=== PATIENT | female | born 1945 | race Caucasian/White ===

== ENCOUNTER → 2016-07-01 | Outpatient (CLI) | payer MEDICARE, BC | LOC: SUN.DIA 08:55 | DX: E11.65 Type 2 diabetes mellitus with hyperglycemia (principal); E66.9 Obesity, unspecified; Z68.43 Body mass index [BMI] 50.0-59.9, adult; Z71.3 Dietary counseling and surveillance; E78.5 Hyperlipidemia, unspecified; I10 Essential (primary) hypertension | CPT/HCPCS: G0108 ==

== ENCOUNTER → 2017-02-03 | Outpatient (CLI) | payer MEDICARE, BC | LOC: SUN.DIA 09:11 | DX: E11.9 Type 2 diabetes mellitus without complications (principal); E78.5 Hyperlipidemia, unspecified; I10 Essential (primary) hypertension; E66.9 Obesity, unspecified; Z68.43 Body mass index [BMI] 50.0-59.9, adult; Z71.3 Dietary counseling and surveillance | CPT/HCPCS: G0108 ==

== ENCOUNTER → 2017-08-04 | Outpatient (CLI) | payer MEDICARE, BC | LOC: SUN.DIA 01-27 09:07 | DX: E11.9 Type 2 diabetes mellitus without complications (principal); E78.5 Hyperlipidemia, unspecified; I10 Essential (primary) hypertension; E66.9 Obesity, unspecified; Z68.43 Body mass index [BMI] 50.0-59.9, adult; Z71.3 Dietary counseling and surveillance | CPT/HCPCS: G0108 ==

== ENCOUNTER → 2017-08-27 | Outpatient (CLI) | payer MEDICARE, BC | LOC: COL.VAS 12:30 | DX: I82.4Z2 Acute embolism and thrombosis of unspecified deep veins of left distal lower extremity (principal); Z86.79 Personal history of other diseases of the circulatory system; Z98.890 Other specified postprocedural states ==

== ENCOUNTER → 2018-03-23 | Outpatient (CLI) | payer MEDICARE, BC | LOC: SUN.DIA 03-02 10:33 | DX: E11.9 Type 2 diabetes mellitus without complications (principal); E78.5 Hyperlipidemia, unspecified; I10 Essential (primary) hypertension ==

== ENCOUNTER 2018-06-09 20:21 | Inpatient (IN) | payer MEDICARE, BC ==
[2018-06-09] VITALS (8 sets, daily range): O2SAT 90–96
[~2018-06-09] VITALS: Ht 157.5 cm; Wt 142.8 kg
[2018-06-09 20:44] LABS: BASO # 0.1 (0.0-0.2); BASO % 0.7 % (0.0-2.0); EOS # 0.2 (0.0-0.7); GRAN # 6.9 (1.4-6.5); GRAN % 64.4 % (42.2-75.2); HEMATOCRIT 45.8 % (37.0-47.0); HEMOGLOBIN 14.4 g/dl (12.5-16.0); LYMPH # 2.6 (1.2-3.4); LYMPH % 24.5 % (20.0-51.0); MEAN CELL VOLUME 94 fl (80.0-100.0); MEAN CORPUSCULAR HEMOGLOBIN 30 pg (27.0-31.0); MEAN CORPUSCULAR HGB CONC 31 g/dl (33.0-37.0); MEAN PLATELET VOLUME 9.7 fl (7.4-10.4); MONO # 0.9 (0.1-0.6); MONO % 7.9 % (1.7-9.3); PLATELET COUNT 284 K/mm3 (130-400); RED BLOOD COUNT 4.85 M/mm3 (4.10-5.30)
[2018-06-09 20:54] LABS: ALBUMIN 4.4 gm/dL (3.5-5.0); BILIRUBIN,TOTAL 0.5 mg/dL (0.0-1.0); C-REACTIVE PROTEIN 1.7 mg/dL (0.0-0.9); CALCIUM 9.8 mg/dL (8.4-10.2); CREATININE, serum 0.69 (0.52-1.25); POTASSIUM 3.7 mmol/L (3.4-5.0); TOTAL PROTEIN 8.5 gm/dL (6.4-8.2)
[2018-06-09 21:13] LABS: TROPONIN-I 0.197 ng/mL (0.000-0.035)
[2018-06-09 21:31] LABS: INR 1.1 (0.8-3.0); PROTHROMBIN TIME 12.2 SECONDS (9.7-12.8)
[2018-06-09 21:34] LABS: PARTIAL THROMBOPLASTIN TIME 29.9 SECONDS (26.0-37.0)
[2018-06-09] MEDS ORDERED: OMEGA-3 1000 MG1 CAP PO (23:09)
[2018-06-09] MEDS ORDERED: GLUCOPHAGE500 MG/TAB PO (23:10)
[2018-06-09] MEDS ORDERED: ARIMIDEX1 MG PO ×2 (23:10)
[2018-06-09] MEDS ORDERED: THE MEDICINE S200 M2 PO (23:11)
[2018-06-09] MEDS ORDERED: COZAAR 25MG25 MG/TAB PO (23:11)
[2018-06-09] MEDS ORDERED: ASPIRIN 81M81 MG/TA2 PO (23:11)
[2018-06-09] MEDS ORDERED: CRESTOR 10MG10 MG PO (23:11)
--- NOTE | 2018-06-09 23:29 | NUR ---
Report received from EHTAN Melton RN at this time.
[2018-06-10] VITALS (440 sets, daily range): BP systolic 137–177; BP diastolic 80–125; PULSE 86–99; TEMP 97.8–98.6; O2SAT 88–100
[2018-06-10] MEDS ORDERED: VENTOLIN0.09 MG IH (00:10)
[2018-06-10 05:00] LABS: BASO # 0.1 (0.0-0.2); BASO % 0.5 % (0.0-2.0); EOS # 0.1 (0.0-0.7); EOS % 0.9 % (0-4.0); GRAN % 73.7 % (42.2-75.2); HEMATOCRIT 41.8 % (37.0-47.0); HEMOGLOBIN 13.4 g/dl (12.5-16.0); MEAN CELL VOLUME 93 fl (80.0-100.0); MEAN CORPUSCULAR HEMOGLOBIN 30 pg (27.0-31.0); MEAN CORPUSCULAR HGB CONC 32 g/dl (33.0-37.0); MEAN PLATELET VOLUME 9.5 fl (7.4-10.4); MONO # 0.7 (0.1-0.6); MONO % 6.3 % (1.7-9.3); PLATELET COUNT 275 K/mm3 (130-400); RED BLOOD COUNT 4.51 M/mm3 (4.10-5.30); REDCELL DISTRIBUTION WIDTH-CV 14.1 % (11.5-14.5)
--- NOTE | 2018-06-10 05:30 | NUR ---
Started cardene back at 2.5 mg/hr per CHAYO Garces.
[2018-06-10 06:35] LABS: CALCIUM 9.6 mg/dL (8.4-10.2); CREATININE, serum 0.58 (0.52-1.25); POTASSIUM 3.9 mmol/L (3.4-5.0)
--- NOTE | 2018-06-10 07:25 | NUR ---
Report received from Nathaniel REZA and care resumed.
--- NOTE | 2018-06-10 10:40 | NUR ---
Dr Castillo in to see pt. Will plan on transitioning pt off cardene to oral bp meds and start on skilled nursing coumadin due to history of previous clots.
--- NOTE | 2018-06-10 10:46 | NUR ---
SIMONE bess met with patient to discuss discharge plan. Patient lives in [place] with her (Albert). Patient's PCP id Dr. Rodriguez and she uses the [facility] in [place]. Patient uses a cane regularly and reports independence with ADLs. Patient does not have a completed DPOA-HC but was interested in obtaining the form to look over and complete later. SIMONE bess presented and explained the form. Patient plans to return home with her upon discharge. No identified needs at this time.
--- NOTE | 2018-06-10 13:10 | NUR ---
Dr Haddad in to see pt at this time.
--- NOTE | 2018-06-10 13:48 | NUR ---
Report given to Marcelina REZA and care transfered.
--- NOTE | 2018-06-10 14:26 | NUR ---
Report called to Laurita REZA on medical floor. Pt to transfer to room 311.
--- NOTE | 2018-06-10 14:40 | NUR ---
Received pt from ICU. Pt denies shortness of breath or chest pain. Breathing is even and unlabored. Breath sounds clear. Strong equal press maintainer. Radial pulse strong. Bowel sounds active in all quadrants. Slight edema to bilateral extremities, no pitting. [place] to room. PT denies any needs, call light in reach.
--- NOTE | 2018-06-10 18:28 | NUR ---
Pt sitting up in bed, denies shortness of breath or chest pain. Pt has been able to be independent in room without SOB. Call light in reach.
--- NOTE | 2018-06-10 18:56 | NUR ---
Hand off report given to Berkley REZA. Pt sitting up in bed with a nose bleed. Kleenex and pressure applied.
--- NOTE | 2018-06-10 19:01 | NUR ---
Report received from JUAQUIN Shay.
--- NOTE | 2018-06-10 20:38 | NUR ---
Resting in bed. Assessment complete. Lungs clear. No shortness of breath or labored breathing present. Heart sounds normal. Bowels active x4. Pulses present throughout. Bilateral lower leg edema +1. Denies pain at this time. INT to right forearm and right AC flushed without complications. Denies needs. at bedside. Call light in reach.
--- NOTE | 2018-06-10 23:49 | NUR ---
Resting in bed. Denies needs. Call light in reach.
[2018-06-11 00:05] VITALS: BP 134/74; PULSE 84; TEMP 97.8
[2018-06-11 03:59] VITALS: BP 158/98; PULSE 88; TEMP 98
--- NOTE | 2018-06-11 04:04 | NUR ---
Sitting at bedside. Denies needs. Denies pain. Call light in reach.
--- NOTE | 2018-06-11 05:45 | NUR ---
Patient oxygen increased to 2 liters per respiratory therapy for saturation of 88% on 1 liter. Otherwise uneventful night. Watching television this AM. Call light in reach.
[2018-06-11 06:21] LABS: BASO # 0.1 (0.0-0.2); BASO % 0.9 % (0.0-2.0); EOS # 0.2 (0.0-0.7); EOS % 2.5 % (0-4.0); GRAN # 4.9 (1.4-6.5); HEMATOCRIT 38.2 % (37.0-47.0); HEMOGLOBIN 12.3 g/dl (12.5-16.0); LYMPH % 24.9 % (20.0-51.0); MEAN CELL VOLUME 92 fl (80.0-100.0); MEAN CORPUSCULAR HEMOGLOBIN 30 pg (27.0-31.0); MEAN CORPUSCULAR HGB CONC 32 g/dl (33.0-37.0); MONO # 0.8 (0.1-0.6); MONO % 10.3 % (1.7-9.3); PLATELET COUNT 223 K/mm3 (130-400); RED BLOOD COUNT 4.14 M/mm3 (4.10-5.30); REDCELL DISTRIBUTION WIDTH-CV 14.1 % (11.5-14.5)
[2018-06-11 06:25] LABS: INR 1.2 (0.8-3.0); PROTHROMBIN TIME 13.7 SECONDS (9.7-12.8)
[2018-06-11 06:32] LABS: CALCIUM 9.2 mg/dL (8.4-10.2); CREATININE, serum 0.6 (0.52-1.25); POTASSIUM 3.7 mmol/L (3.4-5.0)
[2018-06-11 06:47] LABS: TROPONIN-I 0.181 ng/mL (0.000-0.035)
--- NOTE | 2018-06-11 07:02 | NUR ---
Report given to JUAQUIN Andino
--- NOTE | 2018-06-11 07:07 | NUR ---
Patient has nose bleed this AM. Reports x3 throughout night, did not alert staff. On humadified oxygen. JUAQUIN Andino aware of nose bleeds.
[2018-06-11 08:16] VITALS: BP 167/91; PULSE 85; TEMP 98.6
--- NOTE | 2018-06-11 09:09 | NUR ---
patient was admitted with a diagnosis of bilateral PE. patient was awake in bed. A&OX4 and stated pain of 1 on a scale of 0-10. patient stated it was mild joint pain from laying in bed. patient has bilater lower extremity +2 pitting edema. after assessments patient stated no other need. call light within reach and bed in lowest position.
--- NOTE | 2018-06-11 10:07 | NUR ---
patient has had nose bleeds throughout the night. stated very little blood and easy to stop. will continue to monitor
--- NOTE | 2018-06-11 10:18 | NUR ---
Initial visit; Patient thanked Heavy Duty Custodian for offering God's blessings.
[2018-06-11 11:12] VITALS: BP 165/90; PULSE 93; TEMP 98.5
--- NOTE | 2018-06-11 13:48 | NUR ---
Primary nurse was assisted with [phone] patient care by [employer] student Phil Bravo and [employer] instructor Knea Álvarez RN-BC.
[2018-06-11 16:19] VITALS: BP 131/82; PULSE 89; TEMP 98.4
--- NOTE | 2018-06-11 18:32 | NUR ---
Patient is sitting up on window seat visiting with . Has been independently ambulating in room without difficulty. Call light is within reach.
--- NOTE | 2018-06-11 19:07 | NUR ---
Report received from JUAQUIN Andino
[2018-06-11 19:16] VITALS: BP 120/57; PULSE 90; TEMP 98.1
--- NOTE | 2018-06-11 20:30 | NUR ---
Resting in bed. Assessment complete. Lungs clear. Heart sounds normal. Bowels active X4. Pulses present throughout. Bilateral lower leg edema +1. Denies pain. INT in right forarm removed. INT right Ac flushes without complications. Denies other needs at this time. Call light in reach.
--- NOTE | 2018-06-11 21:02 | NUR ---
Sitting at bedside with sister in room. Assessment complete. Lungs clear. Heart sounds normal. Bowels active x4. Pulses present throughout. No edema noted. Left AC INT flushed without complications. Denies needs at this time. Denies pain. Call light in reach. Will monitor.
--- NOTE | 2018-06-12 00:15 | NUR ---
Resting in bed. Denies needs. Call light in reach.
[2018-06-12 01:05] VITALS: BP 155/88; PULSE 87; TEMP 98.1
--- NOTE | 2018-06-12 02:13 | NUR ---
Resting in bed asleep. Call light in reach.
[2018-06-12 03:30] VITALS: BP 132/55; PULSE 75; TEMP 98.1
--- NOTE | 2018-06-12 05:49 | NUR ---
Patient had uneventful night. Resting in bed this AM. Call light in reach.
[2018-06-12 07:15] LABS: INR 1.6 (0.8-3.0); PROTHROMBIN TIME 18.2 SECONDS (9.7-12.8)
[2018-06-12 07:23] VITALS: BP 149/72; PULSE 76; TEMP 97.8
--- NOTE | 2018-06-12 07:25 | NUR ---
Report given to JUAQUIN Andino
--- NOTE | 2018-06-12 07:53 | NUR ---
patiemts primary diagnosis is bilateral PE patient awake in bed this morning. had IV removed the night before, one IV remains with no signs of infuiltration or phlebitis. complained of knee pain. due to pulsoxemetry therapy planned this morning i gave her 5/325 norco for knee pain. having no issues with ambulation or voiding. blood glucose level of 110 this morning. according to sliding scale no insulin is needed. patient has ordered breakfast. call light is within reach and the bed is in the lowest position.
[2018-06-12] MEDS ORDERED: ELIQUIS 5MG PO (09:20)
[2018-06-12] MEDS ORDERED: NORVASC 5MG5 MG/TAB PO (09:21)
[2018-06-12 09:36] LABS: ANTI-THROMBIN III 90 % (72-128)
[2018-06-12 09:39] LABS: PROTEIN C ACTIVITY 131 % (70-150)
--- NOTE | 2018-06-12 10:20 | NUR ---
The patient qualified for home oxygen. SIMONE met with the patient to discuss DME options and presented and explained the patient choice form for DME. The patient chose [facility]. SIMONE contacted and faxed the patient's oxygen order to Nilda at [facility]. SIMONE to continue to follow.
--- NOTE | 2018-06-12 10:53 | NUR ---
Coni, at [facility], reports that the patient will most likely have to private pay for her oxgen, due to her having an acute diagnoses. SIMONE informed the patient and she is agreeable to pursue with getting the oxygen. SIMONE informed Coni at [facility]. [facility] plans to deliver the patient's oxgyen to her room. SIMONE also presented and explained the IM form to the patient. The patient verbalized understanding, signed, and she was provided a copy. No additional needs at this time.
[2018-06-12 13:03] VITALS: BP 153/74; PULSE 71; TEMP 98
[2018-06-12 13:05] LABS: FACTOR II ACTIVITY 89 % (75 - 145)
--- NOTE | 2018-06-12 13:07 | NUR ---
insulin not given. patient being discharged.
--- NOTE | 2018-06-12 13:24 | NUR ---
Patient is discharging home with . Home oxygen is to be delivered to the home and oxygen is delivered to room prior to discharge.
--- NOTE | 2018-06-12 13:42 | NUR ---
Nursing staff transfered patient by wheelchair outside. Personal belongings and discharge paperwork with patient. No further needs expressed from patient.
--- NOTE | 2018-06-12 13:42 | NUR ---
Primary nurse was assisted with [phone] patient care by [employer] [facility] Phil Bravo and [employer] instructor Kena Álvarez RN-BC.
[2018-06-15 12:05] LABS: LUPUS ANTICOAGULANT INR 1.3 (()); LUPUS ANTICOAGULANT PT 13.8 sec (())
== END 2018-06-12 13:42 | disposition home or self-care (01) | DRG 175 ==
LOC: COL.ER 20:21 → ICU 22:54 → IMCU 06-10 14:12 → MEDICAL 06-10 15:29
PROVIDERS: Emergency Medicine; Nurse Practitioner Family; Physician Assistant; ADMIT Internal Medicine
DX: I26.99 Other pulmonary embolism without acute cor pulmonale (principal); I21.4 Non-ST elevation (NSTEMI) myocardial infarction; I82.432 Acute embolism and thrombosis of left popliteal vein; Z68.43 Body mass index [BMI] 50.0-59.9, adult; Z66 Do not resuscitate; I16.0 Hypertensive urgency; E78.5 Hyperlipidemia, unspecified; E11.9 Type 2 diabetes mellitus without complications; Z85.3 Personal history of malignant neoplasm of breast; E66.01 Morbid (severe) obesity due to excess calories
CPT/HCPCS: 99223-AI; 99233-AI; 99239; J1650; J7030; J7050; Q9967

== ENCOUNTER → 2018-09-02 | Outpatient (CLI) | payer MEDICARE, BC ==
[~2018-09-02] MED LIST: ARIMIDEX1 MG PO; ASPIRIN 81M81 MG/TA2 PO; COZAAR 25MG25 MG/TAB PO; CRESTOR 10MG10 MG PO; ELIQUIS 5MG PO; GLUCOPHAGE500 MG/TAB PO; NORVASC 5MG5 MG/TAB PO; OMEGA-3 1000 MG1 CAP PO; THE MEDICINE S200 M2 PO; VENTOLIN0.09 MG IH
--- NOTE | 2018-09-02 11:30 | NUR ---
ABG COMPLETED AT THIS TIME. PER PATIENT REQUEST SPO2 CHECKED VIA [employer]. SPO2 WAS 94%.
[2018-09-02 11:34] LABS: ARTERIAL BLD GAS O2 SATURATION 94.4 % (92-100); ARTERIAL BLD GAS TCO2 CT 22.2; ARTERIAL BLOOD GAS BASE EXCESS -3.2 (-2-2); ARTERIAL BLOOD GAS HCO3 21.1 meq/L (22-26); ARTERIAL BLOOD GAS PCO2 35.5 mmHg (35-45); ARTERIAL BLOOD GAS PO2 75.5 mmHg (80-100); ARTERIAL BLOOD GAS pH 7.39 (7.35-7.45)
== END ==
LOC: COL.PUL 11:20
PROVIDERS: Internal Medicine Interventional Cardiology
DX: R06.02 Shortness of breath (principal)

== ENCOUNTER → 2018-09-14 | Outpatient (CLI) | payer MEDICARE, BC | LOC: COL.RAD 07:30 | DX: K80.20 Calculus of gallbladder without cholecystitis without obstruction (principal); I26.99 Other pulmonary embolism without acute cor pulmonale | CPT/HCPCS: Q9967 ==

== ENCOUNTER 2018-10-08 14:00 | Outpatient (RCR) | payer MEDICARE, BC | END 2018-10-28 10:27 | disposition home or self-care (01) | LOC: WSPT 14:00 | DX: I89.0 Lymphedema, not elsewhere classified (principal) ==

== ENCOUNTER → 2018-10-12 | Outpatient (CLI) | payer MEDICARE, BC | LOC: COL.RAD 07:48 | DX: J32.0 Chronic maxillary sinusitis (principal); J32.2 Chronic ethmoidal sinusitis; R22.1 Localized swelling, mass and lump, neck; K11.8 Other diseases of salivary glands | CPT/HCPCS: Q9967 ==

== ENCOUNTER → 2018-11-02 | Outpatient (CLI) | payer MEDICARE, BC | LOC: DIA.ED 09:39 | DX: E11.9 Type 2 diabetes mellitus without complications (principal); I10 Essential (primary) hypertension; E66.9 Obesity, unspecified | CPT/HCPCS: G0270 ==

== ENCOUNTER → 2018-11-16 | Outpatient (CLI) | payer MEDICARE, BC | LOC: MC.RAD 09:27 | DX: Z12.31 Encounter for screening mammogram for malignant neoplasm of breast (principal); Z90.13 Acquired absence of bilateral breasts and nipples ==

== ENCOUNTER 2019-07-30 11:01 | Day surgery (SDC) | payer MEDICARE, BC ==
[2019-07-30] VITALS (11 sets, daily range): BP systolic 117–152; BP diastolic 65–77; PULSE 65–85
[~2019-07-30] VITALS: Ht 157.5 cm; Wt 142.6 kg
[2019-07-30 11:58] LABS: HEMOGLOBIN 11.5 g/dl (12.5-16.0); MEAN CELL VOLUME 94 fl (80.0-100.0); MEAN CORPUSCULAR HEMOGLOBIN 29 pg (27.0-31.0); MEAN CORPUSCULAR HGB CONC 31 g/dl (33.0-37.0); MEAN PLATELET VOLUME 9.2 fl (7.4-10.4); PLATELET COUNT 305 K/mm3 (130-400); RED BLOOD COUNT 3.94 M/mm3 (4.10-5.30); REDCELL DISTRIBUTION WIDTH-CV 14.6 % (11.5-14.5)
[2019-07-30 12:00] LABS: HEMATOCRIT 36.9 % (37.0-47.0)
[2019-07-30 12:06] LABS: CALCIUM 9.5 mg/dL (8.4-10.2); CREATININE, serum 0.7 (0.52-1.25); INR 1.2 (0.8-3.0); POTASSIUM 4.1 mmol/L (3.4-5.0)
[2019-07-30] MEDS ORDERED: ELIQUIS 5MG PO (12:44)
[2019-07-30] MEDS ORDERED: COZAAR100 MG PO (12:44)
[2019-07-30] MEDS ORDERED: HCTZ12.5TAB PO (12:45)
[2019-07-30] MEDS ORDERED: FLOVENT 110MCG7.9 GM IH (12:47)
[2019-07-30] MEDS ORDERED: FLONASEALLERGY NS (12:48)
[2019-07-30] MEDS ORDERED: TYLENOL 325MG325 MG PO (12:48)
--- NOTE | 2019-07-30 13:20 | NUR ---
Pt to procedure.
--- NOTE | 2019-07-30 13:36 | NUR ---
SEE MERGE DOCUMENTATION FOR MEDICATION ADMINISTRATION AND INTRA/POST PROCEDURE SEDATION ASSESSMENTS.
--- NOTE | 2019-07-30 17:45 | NUR ---
Discharge instructions given to pt.pt verbalizes understanding.INT removed,catheter tip intact.Pt escorted out via wheelchair by this nurse.
== END 2019-07-30 18:10 | disposition home or self-care (01) ==
LOC: COL.CAR 11:01
PROVIDERS: Internal Medicine Interventional Cardiology
DX: I25.10 Atherosclerotic heart disease of native coronary artery without angina pectoris (principal); I10 Essential (primary) hypertension; M85.80 Other specified disorders of bone density and structure, unspecified site; J45.909 Unspecified asthma, uncomplicated; Z79.01 Long term (current) use of anticoagulants; Z79.899 Other long term (current) drug therapy; Z90.13 Acquired absence of bilateral breasts and nipples; Z86.718 Personal history of other venous thrombosis and embolism; Z88.1 Allergy status to other antibiotic agents; Z85.3 Personal history of malignant neoplasm of breast; Z86.711 Personal history of pulmonary embolism; Z88.8 Allergy status to other drugs, medicaments and biological substances; Z88.9 Allergy status to unspecified drugs, medicaments and biological substances
CPT/HCPCS: J1644; J2250; J3010; Q9967